=== PATIENT | female | born 1990 | race African-American/Black ===

== ENCOUNTER 2017-03-05 10:27 | Emergency (ER) | payer SELFPAY | END 2017-03-05 12:00 | disposition home or self-care (01) | LOC: ERS 10:27 | DX: K64.9 Unspecified hemorrhoids (principal) | CPT/HCPCS: 99282 ==

== ENCOUNTER 2020-01-08 10:34 | Emergency (ER) | payer SELFPAY | END 2020-01-08 12:02 | disposition home or self-care (01) | LOC: ERS 10:34 | DX: B86 Scabies (principal); F17.210 Nicotine dependence, cigarettes, uncomplicated | CPT/HCPCS: 99282 ==

== ENCOUNTER 2021-03-11 12:16 | Emergency (ER) | payer SELFPAY ==
[2021-03-11 13:06] LABS: Bilirubin Negative (Negative); Blood, Urine Negative (Negative); Clarity Clear (Clear); Glucose, Urine (Dipstick) Normal (Negative); Ketone, Urine Negative (Negative); Leukocyte Negative Leu/uL (Negative); Nitrite Negative (Negative); Protein, Urine (Dipstick) Negative (Neg-Trace); Specific Gravity, Urine 1.023 (1.002-1.036); Urobilinogen Normal mg/dL (Less than 2)
[2021-03-11 13:08] LABS: Pregnancy Test - Urine (BHCG) Negative (Negative)
[2021-03-11 13:09] LABS: Pregu Control Background? CLEAR/WHITE (CLR/WHITE); Pregu Control Bar Appear? YES (CONTROL BAR); Specific Gravity 1.023 (1.002-1.036)
[2021-03-11 13:56] LABS: #Basophils 0.1 thou/uL (0.0-0.2); #Eosinphils 0.1 thou/uL (0.0-0.7); #Lymphocytes 3.4 thou/uL (1.20-3.40); #Monocytes 0.8 thou/uL (0.11-0.59); #Neutrophils 4.7 thou/uL (1.40-6.50); %Basophils 0.8 % (0.0-1.0); %Eosinophils 1.3 % (0.0-10.0); %Lymphocytes 37.7 % (21.0-51.0); %Monocytes 8.3 % (0.0-10.0); %Neutrophils 51.9 % (42.0-75.0); Hemoglobin 13.4 g/dL (12.0-16.0); Mean Corpuscular HGB CONC 33.4 g/dL (32.0-36.0); Mean Corpuscular Hemoglobin 28.8 pg (27.0-31.0); Mean Corpuscular Volume 86.3 fL (78.0-98.0); Mean Platelet Volume 9.6 fL (7.4-10.4); Platelet Count 163 thou/uL (130-400); RBC Distribution Width 12.9 % (11.5-14.5); Red Blood Cell (RBC) Count 4.64 mill/uL (4.20-5.40)
[2021-03-11] MEDS ORDERED: Lidocaine Viscous Sol 2% 15 ml UD Cup ONE (14:02)
[2021-03-11] MEDS ORDERED: Mag-Al 1200 mg/1200 mg/30 ML UDCUP ONE (14:02)
[2021-03-11 14:12] LABS: ALT (SGPT) 25 U/L (8-55); AST (SGOT) 20 U/L (5-34); Alkaline Phosphatase 81 U/L (40-110); Anion Gap 9 mmol/L (10-20); BUN (Urea Nitrogen) 14 mg/dL (7.0-18.7); Bilirubin, Total 0.6 mg/dL (0.2-1.2); Calc. Creatinine Clearance 0 mL/min (70-130); Calcium 9.8 mg/dL (7.8-10.44); Carbon Dioxide 27 mmol/L (22-29); Chloride 107 mmol/L (98-107); Glucose 76 mg/dL (70-105); Potassium 4.6 mmol/L (3.5-5.1); Sodium 138 mmol/L (136-145)
[2021-03-11] MEDS ORDERED: Ondansetron ODT 4 MG TAB ONE (15:02)
== END 2021-03-11 15:54 | disposition home or self-care (01) ==
LOC: ERS 12:16
DX: K21.9 Gastro-esophageal reflux disease without esophagitis (principal); R10.9 Unspecified abdominal pain; J45.909 Unspecified asthma, uncomplicated; F17.210 Nicotine dependence, cigarettes, uncomplicated; Z79.899 Other long term (current) drug therapy
CPT/HCPCS: 36415; 80053; 81003; 81025; 85025; 94760; 96372; J0500; Q0162

== ENCOUNTER 2021-12-22 11:42 | Emergency (ER) | payer BC ==
[2021-12-22 13:12] LABS: #Eosinphils 0.1 thou/uL (0.0-0.7); #Lymphocytes 2.9 thou/uL (1.20-3.40); #Monocytes 0.5 thou/uL (0.11-0.59); #Neutrophils 3.5 thou/uL (1.40-6.50); %Basophils 0.6 % (0.0-1.0); %Eosinophils 1.6 % (0.0-10.0); %Lymphocytes 41.2 % (21.0-51.0); %Monocytes 7.2 % (0.0-10.0); %Neutrophils 49.4 % (42.0-75.0); Hemoglobin 13.1 g/dL (12.0-16.0); Mean Corpuscular HGB CONC 31.8 g/dL (32.0-36.0); Mean Corpuscular Hemoglobin 27.7 pg (27.0-31.0); Mean Corpuscular Volume 87.1 fL (78.0-98.0); Mean Platelet Volume 9.2 fL (7.4-10.4); Platelet Count 165 thou/uL (130-400); RBC Distribution Width 12.8 % (11.5-14.5); Red Blood Cell (RBC) Count 4.72 mill/uL (4.20-5.40)
[2021-12-22 13:36] LABS: ALT (SGPT) 27 U/L (8-55); AST (SGOT) 24 U/L (5-34); Alkaline Phosphatase 73 U/L (40-110); Anion Gap 13 mmol/L (10-20); BUN (Urea Nitrogen) 12 mg/dL (7.0-18.7); Bilirubin, Total 0.8 mg/dL (0.2-1.2); Calc. Creatinine Clearance 0 mL/min (70-130); Calcium 9.6 mg/dL (7.8-10.44); Carbon Dioxide 24 mmol/L (22-29); Chloride 104 mmol/L (98-107); Estimated GFR 98; Globulin 3.2 g/dL (2.4-3.5); Glucose 84 mg/dL (70-105); Potassium 4.1 mmol/L (3.5-5.1); Protein, Total 7.2 g/dL (6.0-8.3); Sodium 137 mmol/L (136-145)
== END 2021-12-22 15:30 | disposition home or self-care (01) ==
LOC: ERS 11:42
DX: R42 Dizziness and giddiness (principal); F17.210 Nicotine dependence, cigarettes, uncomplicated
CPT/HCPCS: 70450; 80053; 85025; 93005; 96360

== ENCOUNTER 2022-06-13 09:31 | Emergency (ER) | payer BC ==
[2022-06-13] MEDS ORDERED: predniSONE 20 MG TAB ONE (09:47)
[2022-06-13] MEDS ORDERED: Ipratropium Bromide 2.5 ml Neb ONE (10:01)
[2022-06-13] MEDS ORDERED: Albuterol Sulfate 1.25 MG/3 ML NEB ONE (10:01)
[2022-06-13 11:09] LABS: SARS-CoV-2 NAA Rapid Test Not Detected (NotDetected)
== END 2022-06-13 11:15 | disposition home or self-care (01) ==
LOC: ERS 09:31
DX: J11.1 Influenza due to unidentified influenza virus with other respiratory manifestations (principal); J45.901 Unspecified asthma with (acute) exacerbation; Z20.822 Contact with and (suspected) exposure to COVID-19
CPT/HCPCS: 87081; 87430; 87804; J7512; U0002

== ENCOUNTER 2022-08-10 08:50 | Emergency (ER) | payer BC ==
[2022-08-10] MEDS ORDERED: Ketorolac Tromethamine 30 MG/ML VIAL ONE (10:03)
[2022-08-10] MEDS ORDERED: Cyclobenzaprine 10 MG TAB ONE (10:03)
== END 2022-08-10 11:39 | disposition home or self-care (01) ==
LOC: ERS 08:50
DX: S16.1XXA Strain of muscle, fascia and tendon at neck level, initial encounter (principal); J45.909 Unspecified asthma, uncomplicated; F17.210 Nicotine dependence, cigarettes, uncomplicated; Y93.84 Activity, sleeping
CPT/HCPCS: 96372; 99283; J1885

== ENCOUNTER 2023-08-03 16:08 | Emergency (ER) | payer BC ==
[2023-08-03] MEDS ORDERED: Ibuprofen 200 MG TAB ONE (16:29)
[2023-08-03 17:11] LABS: Influenza A by NAA Not Detected (NotDetected); SARS-CoV-2 NAA Rapid Test DETECTED (NotDetected)
== END 2023-08-03 17:29 | disposition home or self-care (01) ==
LOC: ERS 16:08
DX: U07.1 COVID-19 (principal); J45.909 Unspecified asthma, uncomplicated; F17.210 Nicotine dependence, cigarettes, uncomplicated; Z79.899 Other long term (current) drug therapy
CPT/HCPCS: 99283

== ENCOUNTER 2024-04-15 14:28 | Emergency (ER) | payer BC ==
[2024-04-15] MEDS ORDERED: Ketorolac Tromethamine 30 MG (1 mL) VIAL ONE (15:34)
== END 2024-04-15 16:27 | disposition home or self-care (01) ==
LOC: ERS 14:28
DX: S13.4XXA Sprain of ligaments of cervical spine, initial encounter (principal); F17.210 Nicotine dependence, cigarettes, uncomplicated; Y93.84 Activity, sleeping
CPT/HCPCS: 96372; 99283; J1885